=== PATIENT | male | born 1985 | race Caucasian/White ===

== ENCOUNTER → 2016-04-28 | Outpatient (CLI) | payer OTHER ==
[2016-04-28 13:31] VITALS: BP 160/104; PULSE 121; RESP 16
--- NOTE | 2016-04-28 13:50 | P.PN ---
Progress Note - Text Patient returns for followup for chronic back pain with radiation to thoracic area but not to legs. Patient underwent LMBB x 1 with good relief (> 60%) for a full month. Patient continues on methadone and Neurontin medications for pain with good relief. Patient denies adverse drug effects from medications. Today, pt denies new-onset weakness, bowel/bladder incontinence, or any other signs or symptoms of cauda equina syndrome. There are no signs of acute intoxication, and no indications of medication diversion or overuse. Patient notes that he has stopped using marijuana but had negative drug screens because he was incarcerated in March. In addition to above, 13-point review of systems is also negative for chest pain , shortness of breath, changes in vision, changes in hearing, new onset weakness , abdominal pain, diarrhea, extreme fatigue, malaise, fever, skin changes, homicidal or suicidal ideation, or bowel or bladder incontinence. Vital Signs: Reviewed in EMR Gen: WDWN, AAOx3, NAD HEENT: NCAT, EOMI, hearing grossly normal Pulm: resp unlabored Abd: soft, NT, ND Neck: supple, trachea midline ROM in flexion lumbar spine: reduced ROM in extension lumbar spine: reduced Lumbar paravertebral tenderness: ++ Facet loading: ++ bilateral, L > R SI joint tenderness: + bilateral Ernst's test: neg bilateral Straight leg raise: neg bilateral Lower extremity: strength intact Neuro: CN II-XII grossly intact, muscle strength lower extremities PRESERVED Imaging: Reviewed in EMR Assessment: 1. lumbar spondylosis without myelopathy 2. lumbar DDD 3. chronic pain syndrome Plan: 1. Explanation: Opioid and psychological risk scores were reviewed. Diagnoses , prognoses, and multiple treatment options including but not limited to physical therapy, interventional therapies, adjuvant medical therapies, narcotic medication therapies, and surgery were discussed with the patient and all questions were answered to the patient's satisfaction. 2. Opioid agreement: Patient will sign narcotic agreement today, and was orally counseled to not overuse, abuse, divert, or cell medications, and to take them as prescribed by only 1 healthcare provider. The patient was also counseled to store opioid medications in a safe and preferably locked location. Patient was also counseled against driving while using narcotic medications and also to not use alcohol or any illicit or recreational drugs. The patient verbalized understanding that lack of compliance with any of the above and likely result in failure to renew narcotic prescriptions, possible discharge from the clinic, and possible legal ramifications thereafter if indicated. 3. Counseling: The patient was counseled extensively on MARIJUANA, SMOKING CESSATION, BODY MASS INDEX, EXERCISE. Specifically, the patient was instructed regarding the importance of smoking cessation, obesity, and exercise in the context of both chronic pain and overall health. 4. Procedures: bilateral lumbar MBB in May 5. Consultations: None 6. Investigations: repeat UDS today 7. Medications: methadone 10 mg #60 with no refills, Neurontin 600 mg #30 with five refills 8. Disposition: f/u for MBB as scheduled. If patient has irregular UDS on this visit, please titrate down and stop methadone. PQRS measures: 1-Patient's medications are documented in the chart. 2-Tobacco use is negative, counseling given re: THC 3-Patient has had a pneumococcal vaccine. 4-Advanced care planning discussed, patient unable to give. 5-Opioid contract signed with the patient. 6-Pain positive, follow-up visit or procedure scheduled 7-Patient's blood pressure measured and documented, and patient will follow up with the primary care due to hypertension. 8-Patient's weight was measured, and body mass index ABOVE the normal limits, and counseling was done. Patient instructed to follow up with PCP. 9-Patient WAS NOT identified as an unhealthy alcohol user.
== END | disposition home or self-care (01) ==
LOC: PNWHC3 13:11
PROVIDERS: ATTEND Anesthesiology
DX: M47.816 Spondylosis without myelopathy or radiculopathy, lumbar region (principal); M51.36 Other intervertebral disc degeneration, lumbar region; G89.4 Chronic pain syndrome; I10 Essential (primary) hypertension; Z79.891 Long term (current) use of opiate analgesic
CPT/HCPCS: 80307 ×3; G0463; 99211

== ENCOUNTER 2016-05-23 10:10 | Emergency (ER) | payer OTHER ==
[2016-05-23 10:31] VITALS: BP 147/100; PULSE 118; RESP 18; TEMP 97.4
--- NOTE | 2016-05-23 10:46 | ED ---
General Adult HPI - General Chief complaint: Fall Stated complaint: fall from ladder apx 12 ft, landed on back/hip Time Seen by Provider: 05/23/16 10:32 Source: patient, RN notes reviewed Mode of arrival: ambulatory Limitations: no limitations - History of Present Illness Initial comments: Patient is a 30-year-old male who presents emergency room today with a chief complaint of a fall that occurred approximately 4 hours ago. He does admit that he was on a ladder approximately 8 feet up when he began to slip out from underneath him. He states he went down with the ladder landing on his butt. He states that he's had increased pain to his lower back and into the right hip. He does admit that he is experiencing some numbness and tingling to the second and third toes of the right foot. States feels like they're asleep. Patient denies any other complaints. He does admit to a history of low back pain. He states he does take methadone which she did take prior to coming in. Patient states still having some pain and some discomfort worse with movements. He denies any head injury or loss conscious. Denies any other complaints. Patient denies any recent fever, chills, shortness of breath, chest pain, abdominal pain, nausea or vomiting, dysuria or hematuria, constipation or diarrhea, headaches or visual changes, or any other complaints. - Related Data Home Medications Medication Instructions Recorded Confirmed Gabapentin [Neurontin] 600 mg PO HS 05/23/16 05/23/16 Previous Rx's Medication Instructions Recorded Methadone [Dolophine] 10 mg PO BID #60 tab 04/28/16 Cyclobenzaprine [Flexeril] 10 mg PO TID #20 tab 05/23/16 Allergies Allergy/AdvReac Type Severity Reaction Status Date / Time acetaminophen Allergy Swelling Verified 05/23/16 11:00 [From Darvocet-N] propoxyphene napsylate Allergy Swelling Verified 05/23/16 11:00 [From Darvocet-N] Review of Systems ROS Statement: Those systems with pertinent positive or pertinent negative responses have been documented in the HPI. ROS Other: All systems not noted in ROS Statement are negative. Past Medical History Past Medical History: Hypertension Additional Past Medical History / Comment(s): back pain History of Any Multi-Drug Resistant Organisms: None Reported Past Surgical History: No Surgical Hx Reported Past Psychological History: Depression Smoking Status: Current every day smoker Past Alcohol Use History: Occasional Past Drug Use History: Marijuana Additional Drug Use History / Comment(s): Currently on Methadone and states not using Marijuana. General Exam - General Exam Comments Initial Comments: General: The patient is awake and alert, in no distress, and does not appear acutely ill. Neck: The neck is supple, there is no tenderness or JVD. Cardiovascular: There is a regular rate and rhythm. No murmur, rub or gallop is appreciated. Respiratory: Lungs are clear to auscultation, respirations are non-labored, breath sounds are equal. No wheezes, stridor, rales, or rhonchi. Musculoskeletal: Patient has normal appearance of his thoracic, lumbar spine. No step-offs warm secretion. No tenderness over the spinous processes. Paravertebrally tenderness in the right lower lumbar. No bruising or swelling. Patient has normal appearance of right hip. It is and Lipitor and able to bear weight. Mild tenderness over the lateral aspect. Mild tenderness with a logroll maneuver. Sensations are intact to light touch to the entire right leg and also the second and third digits. Pulses are equal bilaterally 2+. Strength is 5/5 in all areas. Neurological: A&O x 3. CN II-XII intact, There are no obvious motor or sensory deficits. Coordination appears grossly intact. Speech is normal. Skin: Skin is warm and dry and no rashes or lesions are noted. Psychiatric: Normal mood and affect. Limitations: no limitations Course Vital Signs 05/23/16 10:27 Temperature 97.4 F L Pulse Rate 118 H Respiratory 18 Rate Blood Pressure 147/100 O2 Sat by Pulse 97 Oximetry Medical Decision Making - Medical Decision Making Patient's x-rays reviewed shows no acute fracture dislocation. Results were discussed with the patient. Patient would also here in emergency room. Is on methadone at home and under pain contract. Will be given a muscle laxer go home with. Advised to return if any symptoms increase or worsen. Disposition Clinical Impression: Fall, Acute low back pain, Contusion, hip Disposition: HOME SELF-CARE Condition: Good Instructions: Acute Low Back Pain (ED) Additional Instructions: Please follow-up with the family doctor and pain specialist as discussed. Please return to emergency room if any symptoms increase or worsen or for any other concerns. Please use muscle relaxants as prescribed and be aware that it may make you drowsy. Prescriptions: Cyclobenzaprine [Flexeril] 10 mg PO TID #20 tab Time of Disposition: 11:27
--- NOTE | 2016-05-23 11:13 | XR ---
EXAMINATION TYPE: XR lumbar spine 2 or 3V DATE OF EXAM: 05/23/2016 11:09 AM CLINICAL HISTORY: pain TECHNIQUE: Three views of the lumbar spine are submitted. COMPARISON: None. FINDINGS: There are 5 lumbar type vertebral bodies identified. The lumbar spine shows satisfactory alignment w ithout evidence of acute fracture or dislocation. Vertebral body heights are within normal limits. Disc spaces are within normal limits. The overlying soft tissue appears unremarkable. IMPRESSION: No acute fracture or dislocation is seen in the lumbar spine. ICD 10 NO FRACTURE, INITIAL EVALUATION
--- NOTE | 2016-05-23 11:14 | XR ---
EXAMINATION TYPE: XR Hip RT and AP Pelvis DATE OF EXAM: 05/23/2016 11:09 AM COMPARISON: NONE HISTORY: Pain, status post fall TECHNIQUE: A single AP view of the pelvis is obtained. Two views of the right hip are obtained. FINDINGS: There is no acute fracture/dislocation evident in the pelvis. The hip and sacroiliac join ts appear symmetric and unremarkable. The overlying soft tissue appears unremarkable. Two views of right hip show no acute fracture or dislocation. Correlate for femoral acetabular imping ement bilaterally. IMPRESSION: There is no acute fracture or dislocation in the pelvis or hip.
[2016-05-23] MEDS ORDERED: KETOROLAC 60 MG/2 ML VIAL IM STA (11:26)
== END 2016-05-23 11:46 | disposition home or self-care (01) ==
LOC: EC 10:10
DX: M54.5 Low back pain (principal); S70.01XA Contusion of right hip, initial encounter; W11.XXXA Fall on and from ladder, initial encounter; F11.99 Opioid use, unspecified with unspecified opioid-induced disorder; Z79.899 Other long term (current) drug therapy; Z88.6 Allergy status to analgesic agent; Z88.5 Allergy status to narcotic agent; F17.200 Nicotine dependence, unspecified, uncomplicated
CPT/HCPCS: 72100; 73502; 99283; 96372; J1885

== ENCOUNTER 2016-05-25 08:39 | Day surgery (SDC) | payer OTHER ==
[2016-05-20 09:21] VITALS: BMI 35.9
[2016-05-25] MEDS: LACTATED RINGERS 1,000 ML IV SCH (09:50)
[2016-05-25] MEDS: LIDOCAINE 1% 20 ML VIAL (10MG/ML) FOR IV START INTRADERMA ONE (09:50)
[2016-05-25 10:06] VITALS: TEMP 97.9
[2016-05-25] MEDS ORDERED: MIDAZOLAM 2 MG/2 ML VIAL ONE (10:29)
[2016-05-25] MEDS ORDERED: BUPIVACAINE (PF) 0.5% 30 ML VIAL ONE (10:29)
[2016-05-25] MEDS ORDERED: TRIAMCINOLONE ACETONIDE 40 MG/ML 1 ML VIAL ONE (10:29)
[2016-05-25] MEDS ORDERED: fentaNYL (PF) 50 MCG/ML 2 ML AMP ONE (10:29)
--- NOTE | 2016-05-25 10:57 | P.PCN ---
Date of Procedure: 05/25/16 Procedure(s) Performed: PREOPERATIVE DIAGNOSIS : 1- Lumbar spondylosis with Facet Arthropathy without myelopathy . 2- Lumber degenerative disc disease POSTOPERATIVE DIAGNOSIS: 1- Lumbar spondylosis with Facet Arthropathy without myelopathy . 2- Lumber degenerative disc disease PROCEDURE: Diagnostic bilateral L3 -4 , L4 -5 , and L5-S1 medial branch block under fluoroscopy ANESTHESIA: Local with 1% lidocaine 6 ml ; IV sedation with Versed 4 mg and Fentanyl 200 mcg. EBL: Minimal COMPLICATION: None. IV FLUIDS: 100 mL of normal saline. PROCEDURE INDICATION: Chronic low back pain secondary to Facet arthropathy unresponsive to conservative treatment. PROCEDURE DESCRIPTION: the patient was seen and identified in the preop holding area , risks and benefits and possible complications of the procedure and alternative were discussed with the patient, and the patient agreed to proceed with the procedure and signed the consent IV was started and vital signs monitored during the procedure and fluoroscopy was used to maximize the benefit and accuracy of the needle placement, and sedation was given to decrease patient anxiety, patient was taken to the procedure room and placed in prone position vital signs monitored in the back prepped with chlorhexidine X3 then under strict sterile technique using a right oblique fluoroscopy ,the junction of the transverse process and the superior articulating process of the right L3- 4 , L4- 5, and L5-S1 vertebra which corresponding to the fluoroscopy image of the eye of the Samuel dog on the block side for the medial branches and subsequently , after local infiltration of skin and subcu tissuies with lidocaine 1% one mL at each level ,then 22- gauge Quincke-type needles 5 inches long , 3 needle was used , each one of them placed at the junction of the base of the transverse process and the superior articular process at the appropriate level, and the needle was advanced until the periosteum contacted, needle placement confirmed with AP oblique and lateral view and after appropriate needle placement confirmed, and after negative aspiration for heme and CSF and there was no paresthesia 1-1/2 mL of Marcaine 0.5% mixed with 40 mg Kenalog , then half mL injected at each level after negative aspiration the needle subsequently removed and the same procedure repeated for the left side at left side at L3-4, L4- 5 and L5-S1 levels. At the end of the procedure and the needles removed and a bandage applied after the skin was cleaned the cleaning solution patient taken to recovery room in stable condition and monitors in the recovery room for 20-30 minutes and discharged home in stable condition after discharge criteria met and patient will follow up with the pain clinic in 2-4 weeks
[2016-05-25] MEDS: IV FLUID CONTINUATION 1,000 ML IV ONE (11:09)
[2016-05-25 11:13] VITALS: BP 143/90; PULSE 82; RESP 18
--- NOTE | 2016-05-25 12:54 | FL ---
FLUOROSCOPY 11 seconds of fluoroscopy time were utilized during facet injections. 4 images document the procedure .
== END 2016-05-25 11:45 | disposition home or self-care (01) ==
LOC: ORPAIN 08:39
PROVIDERS: ATTEND Specialist
DX: G89.29 Other chronic pain (principal); M46.86 Other specified inflammatory spondylopathies, lumbar region; M51.36 Other intervertebral disc degeneration, lumbar region; Z88.5 Allergy status to narcotic agent
CPT/HCPCS: 64493; 64494; 64495; J2250; J3301; J3010

== ENCOUNTER 2016-07-07 10:01 | Day surgery (SDC) | payer OTHER ==
[2016-07-06 08:57] VITALS: BMI 33.3
[2016-07-07 10:19] VITALS: RESP 16; TEMP 99.1
[2016-07-07] MEDS: LACTATED RINGERS 1,000 ML IV SCH ×2 (10:22→11:01)
[2016-07-07] MEDS ORDERED: TRIAMCINOLONE ACETONIDE 40 MG/ML 1 ML VIAL ONE (11:03)
[2016-07-07] MEDS ORDERED: MIDAZOLAM 2 MG/2 ML VIAL ONE (11:03)
[2016-07-07] MEDS ORDERED: fentaNYL (PF) 50 MCG/ML 2 ML AMP ONE (11:03)
[2016-07-07] MEDS ORDERED: BUPIVACAINE (PF) 0.25% 30 ML VIAL ONE (11:03)
--- NOTE | 2016-07-07 11:38 | P.PCN ---
Date of Procedure: 07/07/16 Procedure(s) Performed: PREOPERATIVE DIAGNOSIS: 1-Lumbar Spondylosis with Facet Arthropathy without myelopathy. 2- Lumber degenerative disc disease POSTOPERATIVE DIAGNOSIS: 1- Lumbar Spondylosis with Facet Arthropathy without myelopathy. 2- Lumber degenerative disc disease PROCEDURES : Right Radiofrequency thermocoagulation, L3-L4, L4-L5, and L5-S1 medial branch, with fluoroscopic guidance ANESTHESIA: IV sedation with versed 3 mg and fentaneyl 100 mcg and local infiltration with lidocaine 1% 6 ml EBL: Minimal PROCEDURE INDICATION: The patient with low back pain secondary to lumbar facet arthropathy who had more than 50% relief of her pain with previous diagnostic lumbar medial branch block with bupivacaine. PROCEDURE DESCRIPTION / TECHNIQUE: The patient was seen and identified in the preoperative area. Risks, benefits, complications, including but not limited to risk of infection ,bleeding , allergic reactions to the medications and no complete pain releife , and alternatives were discussed with the patient, the patient agreed to proceed with the procedure and signed the consent. IV was started. Vital signs remained stable throughout the procedure. Patient was taken to the OR and time out was completed. The patient was placed in the prone position on the procedure table. The lumber area was prepped and draped in the usual sterile fashion. . Vital signs were closely monitored during the procedure .IV sedation was used during the procedure to decrease patients anxiety. Using AP and then oblique fluoroscopy, the ``eye of the Samuel dog corresponding to the connection between the superior and transverse articular processes of right L3, L4, and L5 were identified, marked, and localized with 1 % lidocaine. Subsequently, a [id number] radiofrequency cannula with a 10- mm active tip was advanced guided by fluoroscopy to each of the ``eyes of the Samuel dog at right L3, L4, and L5. Each site then underwent sensory testing at 50 Hz and 0 to 1 volt and motor testing at 2.5 Hz and 0 to 3 volt with local stimulation, but no radicular symptoms down the legs. Thereafter the right L3-4, L4-5, and L5-S1 sites underwent radiofrequency thermocoagulation at 80 degrees celsius for 90 seconds after injecting 0.5 ml of PF lidocaine 1%. then After the thermocoagulation done , 1 ml of the block solution containing Kenalog 40 mg and 3 ml of marain 0.5% was injected at the right L3-4 , L4-5 , and L5-S1, levels after negative aspiration of CSF and blood and with no paresthesias. Cannulas were retracted while injecting lidocaine 1% until the needle is out. At the end of the procedure, the skin was cleansed and bandages were applied. COMPLICATIONS: No acute complications. DISPOSITION / PLANS: The patient was placed in a supine position and transferred to the recovery area in a stable condition for observation and was discharged from the recovery room after meeting discharge criteria. Home discharge instructions given to the patient by the staff. The patient was reexamined prior to discharge. The patient will schedule a follow up in the clinic in 2-4 weeks. Patient given prescription refill for methadone 10 mg twice a day this 60 ,and next visit we will do a urine drug screen
[2016-07-07] MEDS ORDERED: IV FLUID CONTINUATION 1,000 ML IV ONE (11:44)
--- NOTE | 2016-07-07 11:48 | FL ---
EXAMINATION TYPE: FL guided pain mgmt statistic DATE OF EXAM: 07/07/2016 11:37 AM HISTORY: Flouroscopy time 8 seconds of fluoroscopy provided. IMPRESSION: 1. Fluoroscopy time.
[2016-07-07 12:00] VITALS: BP 118/68; PULSE 65
== END 2016-07-07 12:11 | disposition home or self-care (01) ==
LOC: ORPAIN 10:01
PROVIDERS: ATTEND Specialist
DX: M46.96 Unspecified inflammatory spondylopathy, lumbar region (principal); M47.816 Spondylosis without myelopathy or radiculopathy, lumbar region; M51.36 Other intervertebral disc degeneration, lumbar region; Z88.5 Allergy status to narcotic agent
CPT/HCPCS: 64635; 64636 ×2; 99152; J2250; J3301; J3010

== ENCOUNTER 2016-08-11 10:03 | Day surgery (SDC) | payer OTHER ==
[2016-08-10 08:42] VITALS: BMI 32.1
[~2016-08-11 10:03] MED LIST: LACTATED RINGERS 1,000 ML IV SCH
[2016-08-11 11:02] VITALS: RESP 16; TEMP 98.2
[2016-08-11] MEDS ORDERED: LIDOCAINE 1% 20 ML VIAL (10MG/ML) FOR IV START SQ ONE (11:10)
[2016-08-11] MEDS ORDERED: BUPIVACAINE (PF) 0.5% 30 ML VIAL ONE (11:46)
[2016-08-11] MEDS ORDERED: LACTATED RINGERS 1,000 ML IV ONE (11:46)
[2016-08-11] MEDS ORDERED: fentaNYL (PF) 50 MCG/ML 2 ML AMP ONE (11:46)
[2016-08-11] MEDS ORDERED: MIDAZOLAM 2 MG/2 ML VIAL ONE (11:46)
[2016-08-11] MEDS ORDERED: TRIAMCINOLONE ACETONIDE 40 MG/ML 1 ML VIAL ONE (11:46)
--- NOTE | 2016-08-11 12:22 | P.PCN ---
Date of Procedure: 08/11/16 Procedure(s) Performed: PREOPERATIVE DIAGNOSIS: 1-Lumbar Spondylosis with Facet Arthropathy without myelopathy. 2- Lumber degenerative disc disease. POSTOPERATIVE DIAGNOSIS: 1- Lumbar Spondylosis with Facet Arthropathy without myelopathy. 2- Lumber degenerative disc disease. PROCEDURES : Left Radiofrequency thermocoagulation, L3-L4, L4-L5, and L5-S1 medial branch, with fluoroscopic guidance ANESTHESIA: IV sedation with versed 4 mg and fentaneyl 100 mcg and local infiltration with lidocaine 1% 6 ml EBL: Minimal PROCEDURE INDICATION: The patient with low back pain secondary to lumbar facet arthropathy who had more than 50% relief of her pain with previous diagnostic lumbar medial branch block with bupivacaine. PROCEDURE DESCRIPTION / TECHNIQUE: The patient was seen and identified in the preoperative area. Risks, benefits, complications, including but not limited to risk of infection ,bleeding , allergic reactions to the medications and no complete pain releife , and alternatives were discussed with the patient, the patient agreed to proceed with the procedure and signed the consent. IV was started. Vital signs remained stable throughout the procedure. Patient was taken to the OR and time out was completed. The patient was placed in the prone position on the procedure table. The lumber area was prepped and draped in the usual sterile fashion. . Vital signs were closely monitored during the procedure .IV sedation was used during the procedure to decrease patients anxiety. Using AP and then oblique fluoroscopy, the ``eye of the Samuel dog corresponding to the connection between the superior and transverse articular processes of left L3, L4, and L5 were identified, marked, and localized with 1 % lidocaine. Subsequently, a [id number] radiofrequency cannula with a 10- mm active tip was advanced guided by fluoroscopy to each of the ``eyes of the Samuel dog at left L3, L4, and L5. Each site then underwent sensory testing at 50 Hz and 0 to 1 volt and motor testing at 2.5 Hz and 0 to 3 volt with local stimulation, but no radicular symptoms down the legs. Thereafter the left L3-4, L4-5, and L5-S1 sites underwent radiofrequency thermocoagulation at 80 degrees celsius for 90 seconds after injecting 0.5 ml of PF lidocaine 1%. then After the thermocoagulation done , 1 ml of the block solution containing Kenalog 40 mg and 3 ml of marain 0.5% was injected at the left L3-4 , L4-5 , and L5-S1, levels after negative aspiration of CSF and blood and with no paresthesias. Cannulas were retracted while injecting lidocaine 1% until the needle is out. At the end of the procedure, the skin was cleansed and bandages were applied. COMPLICATIONS: No acute complications. DISPOSITION / PLANS: The patient was placed in a supine position and transferred to the recovery area in a stable condition for observation and was discharged from the recovery room after meeting discharge criteria. Home discharge instructions given to the patient by the staff. The patient was reexamined prior to discharge. The patient will schedule a follow up in the clinic in 2-4 weeks.
[2016-08-11] MEDS ORDERED: IV FLUID CONTINUATION 1,000 ML IV ONE ×2 (12:30)
[2016-08-11 12:36] VITALS: PULSE 83
[2016-08-11 12:55] VITALS: BP 134/94
--- NOTE | 2016-08-11 13:55 | FL ---
Fluoroscopy HISTORY: Pain 18 seconds fluoroscopy time supplied to the referring clinician. 4 intraoperative C-arm images docum ent the procedure. See dictated report from anesthesia.
== END 2016-08-11 13:03 | disposition home or self-care (01) ==
LOC: ORPAIN 10:03
PROVIDERS: ATTEND Specialist
DX: M47.816 Spondylosis without myelopathy or radiculopathy, lumbar region (principal); M51.36 Other intervertebral disc degeneration, lumbar region; Z88.5 Allergy status to narcotic agent
CPT/HCPCS: 64635; 64636; 99152; 99153; J2250; J3301; J3010

== ENCOUNTER 2020-05-17 11:07 | Emergency (ER) | payer BC, OTHER ==
[2020-05-17 11:15] VITALS: BP 192/95; PULSE 94; RESP 19; TEMP 98.4
[2020-05-17] MEDS ORDERED: ACET/COD 300 MG/30 MG STARTER PACK 6 TAB BTL PO STA (11:37)
--- NOTE | 2020-05-17 11:37 | ED ---
ENT HPI - General Chief complaint: Dental/Oral Stated complaint: dental pain Time Seen by Provider: 05/17/20 11:16 Source: patient, RN notes reviewed Mode of arrival: ambulatory Limitations: no limitations - History of Present Illness Initial comments: This is a 34-year-old male presents to the emergency Department with chief complaint of dental pain. Patient states started a few days ago. Patient states he had an abscess in states he cut it with an X-Acto knife. Patient states the pain is still there he has an appointment coming up with a dentist. Patient has any fevers chills no difficulty swallowing or difficult breathing. No fever - Related Data Home Medications Medication Instructions Recorded Confirmed Gabapentin [Neurontin] 600 mg PO HS 05/23/16 08/11/16 Previous Rx's Medication Instructions Recorded Methadone [Dolophine] 10 mg PO BID #60 tab 04/28/16 Ibuprofen [Motrin] 600 mg PO Q8HR PRN #20 tab 05/17/20 Penicillin V Potassium [Pen Vee K] 500 mg PO QID #40 tablet 05/17/20 Allergies Allergy/AdvReac Type Severity Reaction Status Date / Time propoxyphene napsylate Allergy Swelling Verified 05/17/20 11:15 [From Michael] Review of Systems ROS Statement: Those systems with pertinent positive or pertinent negative responses have been documented in the HPI. ROS Other: All systems not noted in ROS Statement are negative. Past Medical History Past Medical History: Hypertension Additional Past Medical History / Comment(s): back pain History of Any Multi-Drug Resistant Organisms: None Reported Past Surgical History: No Surgical Hx Reported Additional Past Surgical History / Comment(s): pain procedures, recently had a tooth pulled and took antxb. for 2 days only. Last day to take antxb. was 08/08/16. Past Anesthesia/Blood Transfusion Reactions: No Reported Reaction Past Psychological History: Anxiety, Depression Smoking Status: Former smoker Past Alcohol Use History: Occasional Past Drug Use History: Marijuana - Past Family History Mother Family Medical History: No Reported History General Exam Limitations: no limitations General appearance: alert, in no apparent distress Head exam: Present: atraumatic, normocephalic, normal inspection Eye exam: Present: normal appearance, PERRL, EOMI. Absent: scleral icterus, conjunctival injection, periorbital swelling ENT exam: Present: mucous membranes moist, TM's normal bilaterally. Absent: normal oropharynx (There is mild erythema along the gumline, dental decay and dental fracture noted) Neck exam: Present: normal inspection, full ROM. Absent: tenderness, meningismus, lymphadenopathy Respiratory exam: Present: normal lung sounds bilaterally. Absent: respiratory distress, wheezes, rales, rhonchi, stridor Cardiovascular Exam: Present: regular rate, normal rhythm, normal heart sounds. Absent: systolic murmur, diastolic murmur, rubs, gallop, clicks Course Vital Signs 05/17/20 11:12 Temperature 98.4 F Pulse Rate 94 Respiratory 19 Rate Blood Pressure 192/95 O2 Sat by Pulse 98 Oximetry Medical Decision Making - Medical Decision Making Patient was started on advised, discharged with pain medication patient is a follow-up with her dentist return parameters were discussed. Disposition Clinical Impression: Fracture of tooth, Toothache Disposition: HOME SELF-CARE Condition: Stable Instructions (If sedation given, give patient instructions): Toothache (ED) Additional Instructions: Please return to the Emergency Department if symptoms worsen or any other concerns. Prescriptions: Ibuprofen [Motrin] 600 mg PO Q8HR PRN #20 tab PRN Reason: Pain Penicillin V Potassium [Pen Vee K] 500 mg PO QID #40 tablet Is patient prescribed a controlled substance at d/c from ED?: No Referrals: None,Stated [Primary Care Provider] - 1-2 days Time of Disposition: 11:37
== END 2020-05-17 12:04 | disposition home or self-care (01) ==
LOC: EC 11:07
DX: S02.5XXA Fracture of tooth (traumatic), initial encounter for closed fracture (principal); Z88.8 Allergy status to other drugs, medicaments and biological substances; Z87.891 Personal history of nicotine dependence; X58.XXXA Exposure to other specified factors, initial encounter
CPT/HCPCS: 99282